=== PATIENT | female | born 1945 | race Two or more races ===

== ENCOUNTER 2019-01-09 06:58 | Inpatient (IN) ==
[~2019-01-09 06:58] MED LIST: ceFAZolin SODIUM/DEXTROSE,ISO 2 GM/50 ML BAG IV PRN
--- NOTE | 2019-01-09 07:44 | ANES ---
Anesthesia Pre Procedure Eval Vitals/Labs: Last Vital Signs Temp 36.4 C 01/09/19 07:17 Pulse 86 01/09/19 07:17 Resp 16 01/09/19 07:17 BP 137/79 01/09/19 07:17 Pulse Ox 99 01/09/19 07:17 HOME MEDICATIONS oxybutynin chloride 5 mg tablet 5 mg PO BID #180 tab 07/28/18 [Last Taken Unknown] levothyroxine 150 mcg tablet 150 mcg PO DAILY #90 tab 10/31/18 [Last Taken Unknown] omeprazole 40 mg capsule,delayed release 40 mg PO DAILY PRN #30 cap 11/13/18 [Last Taken Unknown] pantoprazole 20 mg tablet,delayed release 20 mg PO DAILY PRN #90 tab 11/18/18 [Last Taken Unknown] hydrocodone 5 mg-acetaminophen 325 mg tablet 1 tab PO Q6H #14 tab 12/24/18 [Last Taken Unknown] Allergies/Adverse Reactions: Allergies Allergy/AdvReac Type Severity Reaction Status Date / Time No Known Allergies Allergy Verified 01/09/19 07:23 - Planned Procedure Planned Procedure: TLH, doug salpingo-oophorectomy, cystoscopy Medication List Reviewed:: Yes Allergies Verified: Yes Medical History (Last Reviewed 01/09/19 @ 07:43 by Alex Jose CRNA) Acute lateral meniscus tear of right knee Onset Date: ~2009 Colonoscopy refused Onset Date: Unknown GERD (gastroesophageal reflux disease) Onset Date: ~1997 Hyperlipidemia Onset Date: ~2007 Hypothyroidism Onset Date: ~2000 Osteoarthritis Onset Date: Unknown Varicose veins of both lower extremities Onset Date: Unknown Surgical History (Last Reviewed 01/09/19 @ 07:43 by Alex Jose CRNA) H/O vein stripping Onset Date: Unknown bilateral lower extremity, great saphernous veing stripping with stab phlebotomies, based on the incisions she has on her legs--[facility] vascular surgery History of appendectomy Onset Date: ~1960 History of total knee arthroplasty Onset Date: ~11/22/16 left knee at [facility] S/P arthroscopic surgery of right knee Onset Date: ~2009 Family History (Last Reviewed 01/09/19 @ 07:43 by Alex Jose CRNA) Father Myocardial infarction Parkinsons disease Mother , age 93 hip fracture with complications - Family Anesthesia History Family History:: no untoward family reactions to anesthesia - Airway/Neck/Teeth Teeth Condition: missing Neck Exam: full range of motion Mallampatti Score: 2 Thyromental (T-M) distance: > 6 cm Mandibulo Hyoid distance: > 3 cm - Respiratory Respiratory Physical: lungs clear Smoking Status: Never smoker Sleep Apnea currently treated: No Sleep Apnea by current assessment: No - Cardiovascular Tolerate Activity: Fair Heart Sounds: S1 & S2, Regular - Anesthesia Assessment and Plan Anesthesia Type Plan: General ET
[2019-01-09] MEDS: RINGER'S SOLUTION,LACTATED 1,000 ML IV PRN ×5 (07:50→20:09)
[2019-01-09] MEDS ORDERED: oxyCODONE HCL/ACETAMINOPHEN 1 TAB TABLET PO PRN (08:36)
[2019-01-09] MEDS ORDERED: RINGER'S SOLUTION,LACTATED 1,000 ML IV PRN (08:36)
[2019-01-09] MEDS ORDERED: MORPHINE SULFATE 2 MG/ML DISP.SYRIN IV PRN (08:36)
[2019-01-09] MEDS ORDERED: IBUPROFEN 800 MG TABLET PO PRN (08:36)
[2019-01-09] MEDS ORDERED: ONDANSETRON HCL/PF 2 MG/ML VIAL IV PRN (10:42)
[2019-01-09] MEDS ORDERED: METOCLOPRAMIDE HCL 5 MG/ML VIAL IV PRN (10:42)
--- NOTE | 2019-01-09 10:45 | POSTOP NO ---
Date of Surgery: 01/09/19 Stop Time: 10:44 Anesthesia: General Patient Tolerated the Procedure: Well Post Operative Diagnosis/Procedures: Pre Operative Diagnosis: PMB, leiomyomas Post Operative Diagnosis: same Procedure Performed: laparoscopy converted to JERMAINE Estimated Blood Loss: 200 mL Specimens: cervix, uterus, left tube and ovary Surgical Complications: none Condition: stable Disposition: to recovery room
[2019-01-09] MEDS ORDERED: MORPHINE SULFATE 50 MG CARTRIDGE IV PRN (11:57)
[2019-01-09] MEDS ORDERED: NALOXONE HCL 1 MG/1 ML SYRG IV PRN (11:57)
[2019-01-09] MEDS ORDERED: diphenhydrAMINE HCL 50 MG/ML VIAL IV PRN (11:57)
--- NOTE | 2019-01-09 11:57 | OR ---
Operative Report - Dictated Report Narrative: Preoperative diagnosis: PMB, cervical and uterine leiomyomas Postoperative diagnosis: as above plus severe intra-abdominal adhesions Procedure: Attempted laparoscopy converted to total abdominal hysterectomy, lysis of adhesions Surgeon: Dr. Altamirano Anesthesia: general Anesthesiologist: Dimas Jose CRNA Description of the procedure: The patient was taken to the operating room where general endotracheal anesthesia was induced without difficulty. She was then prepped and draped in the lithotomy position in the standard surgical fashion. Attention was then turned to the vagina. A sterile speculum was placed in the patient's vagina. The anterior lip of the cervix was grasped with a single toothed tenaculum. A cervical fibroid was again noted. A DEBORAH manipulator was placed using a blue tip and a large cup. Attention was then turned to the abdomen. A 5mm skin incision was made at the punctum of the umbilicus. Attempts at entry into the abdomen took 3 times secondary to adhesions. The third entry was away from the adhesions but adhesions were noted of the omentum as well as the bowel to the right side of the abdominal wall all the way to the left pelvic side wall. I attempted to take down the adhesions after placing a 5mm LLQ port. However, the uterus could not visualized at all and thus it was not safe to complete the case laparoscopically. At this point I made the decision to proceed with an open case. The port sites were closed with 3-0 monocryl. A Pfannestiel skin incision was made. The incision was carried through the subcutaneous tissue. The fascia was incised in the midline. The fascial incision was extended laterally using sharp dissection. The fascia was grasped with Aaron clamps and dissected from the underlying rectus muscles. The same procedure was repeated inferiorly. Hemostasis was obtained as there were several bleedings both superiorly and inferiorly. The rectus muscles were in the midline. The peritoneum was entered very carefully due to the known adhesions. The omentum was densely adherent. The omentum was from the incision. The peritoneum was entered sharply taking great care not to injury the bowel. The bowel was packed away with laps. A medium Lorenzo retractor was placed. The uterus was identified and grasped with a tenaculum. The sigmoid colon was noted to be adhere to the left tube and ovary and this was dissected carefully and looking at the bowel wall the entire time. The right round ligament was identified and transected. The incision was carried through the anterior and posterior leaves of the broad ligament. A bladder flap was created anteriorly. The bladder was found to be adherent to the lower uterine segment and thus the bladder was flap was created and the bladder was taken down very carefully. Next, the uterine arteries were skeletonized and progressively clamped. There was significant bleeding from the right side and several sutures had to be placed for hemostatis. Attention was then turned to the left side. The IP ligament was identified and doubly clamped. Then the pedicle was sutured ensuring hemostatis. The left tube appeared normal. The left ovary appeared atrophic. Then the uterine arteries were skeletonized and suture ligated on the left. The bladder flap was further expanded. A colpotomy was started following the cup of the DEBORAH manipulator, initially anteriorly and then posteriorly. Additional bleeding was controlled on the right side. The vaginal cuff was closed with 0-vicryl sutures and interrupted figure of eight sutures. Bleeding was noted from the bilateral peritoneal surfaces posteriorly using irrigation to identify the bleeding areas. Several sutures were placed for hemostasis. Surgicel was placed and pressure was held for two minutes. After removing the surgicel bleeding again ensued. The raw peritoneal surfaces were approximated to the vaginal cuff to enclose the entire posterior area. Surgicel was placed again and pressure was held for 5 minutes. Hemostasis was adequate. All laps were removed from the abdomen as well as the Lorenzo retractor. The rectus muscles were inspected and made hemostatic. The fascia was also inspected and made hemostatic. The fascia was closed with a continuous suture of 1-0 vicryl. The subcutaneous tissue was irrigated and hemostasis was obtained. The subcutaneous tissue was closed with 2-0 vicryl. The skin was closed with 3-0 monocryl on a Jovan needle. Dermabond was placed over the incisions. All sponge, lap, and needle counts were correct. The patient tolerated the procedure well. She was transferred to the recovery room in stable condition. EBL: 200 mL Complications: none Specimens: cervix, uterus, left fallopian tube and ovary
--- NOTE | 2019-01-09 12:11 | ANES ---
Post Anesthesia Discharge - Transfer of Care Transfer of Care handoff given to nurse: Yes - Discharge from PACU Discharge from PACU when meets criteria: Yes
--- NOTE | 2019-01-09 12:11 | ANES ---
Post Anesthesia Assessment - Vital Signs Vitals: Last Vital Signs Temp 36.5 C 01/09/19 11:30 Pulse 87 01/09/19 12:05 Resp 17 01/09/19 12:05 BP 132/68 01/09/19 12:05 Pulse Ox 95 01/09/19 12:05 Airway Patency: Normal - Mental Status Level Of Consciousness: Awake - Pain Level Pain Score: 6 - N/V Assessment Nausea/Vomiting Presence: None Dehydration:: No
[2019-01-09] MEDS: oxyCODONE HCL/ACETAMINOPHEN 1 TAB TABLET PO PRN ×2 (16:48→22:39)
[2019-01-09] MEDS: IBUPROFEN 800 MG TABLET PO PRN (22:39)
[2019-01-10] MEDS: RINGER'S SOLUTION,LACTATED 1,000 ML IV PRN ×2 (04:14→07:19)
[2019-01-10] MEDS: oxyCODONE HCL/ACETAMINOPHEN 1 TAB TABLET PO PRN (04:53)
[2019-01-10] MEDS: IBUPROFEN 800 MG TABLET PO PRN (04:53)
[2019-01-10] MEDS ORDERED: RINGER'S SOLUTION,LACTATED 1,000 ML IV ONE ×2 (06:00→09:36)
[2019-01-10 06:05] LABS: Hematocrit 35.3 % (37.0-47.0); Hemoglobin 11.1 gm/dL (12.5-16.0); Mean Cell Volume 94.4 fl (78-100); Mean Corpuscular Hemoglobin 29.7 pg (27-31); Mean Corpuscular Hgb Conc 31.4 g/dl (32-36); Mean Platelet Volume 10.3 fl (8-12.5); Neutrophil # 4.5 K/mm3 (1.3-6.0); Neutrophil % 63.7 % (42-75.0); Platelet Count 143 K/mm3 (150-450); Red Blood Count 3.74 M/mm3 (4.2-5.4); Red Cell Distribution Width 13.4 % (11.5-14.0); White Blood Count 7.1 K/mm3 (4.0-10.5)
[2019-01-10 06:13] LABS: Anion Gap 7.9 mmol/L (6.8-13.8); BUN/Creatinine Ratio 22.9 (9.0-21.6); Blood Urea Nitrogen 24 mg/dL (3-23); Calcium * 7.8 mg/dL (7.9-10.9); Carbon Dioxide 31.3 mmol/L (24-32.6); Chloride 106 mmol/L (97-106); Glucose * 121 mg/dL (70-110); Potassium 4.2 mmol/L (3.4-4.6); Sodium 141 mmol/L (132-142)
--- NOTE | 2019-01-10 09:27 | PN ---
Subjective - Date and Time Seen Date: 01/10/19 Time: 09:17 Subjective Narrative: Patient without complaints Objective Objective Narrative: See vital signs - Review of Systems Generalized/Overall Review: Reports: No Symptoms Reported Misc: All systems neg except as marked - Vitals Vitals: Last Vital Signs Temp 36.5 C 01/10/19 07:28 Pulse 70 01/10/19 07:28 Resp 20 01/10/19 07:28 BP 118/62 01/10/19 07:28 Pulse Ox 92 L 01/10/19 07:28 - Abnormal Lab Findings Abnormal Lab Findings: Abnormal Lab Results 01/10/19 01/10/19 Range/Units 06:01 06:01 RBC 3.74 L (4.2-5.4) M/mm3 Hgb 11.1 L (12.5-16.0) gm/dL Hct 35.3 L (37.0-47.0) % MCHC 31.4 L (32-36) g/dl Plt Count 143 L (150-450) K/mm3 BUN 24 H (3-23) mg/dL Est GFR (Non-Af Amer) 54 L (60-130) mL/min BUN/Creatinine Ratio 22.9 H (9.0-21.6) Random Glucose 121 H (70-110) mg/dL Calcium 7.8 L (7.9-10.9) mg/dL - Exam Constitutional: Present: Alert, Oriented x3, Cooperative, No distress Abdomen: Present: soft, nontender, nondistended Extremity: Present: non-tender, no calf tenderness Skin Exam: Present: normal color, warm/dry, no cyanosis Appearance: Present: appropriate appearance Eye contact: Present: cooperative Thoughts: Present: normal thought pattern Assessment/Plan Plan Narrative: POD 1 s/p attempted laparoscopy, JERMAINE Doing well Pt had decreased urine output. The patient received a bolus of LR. The BUN is high and the patient's urine is concentrated consistent with a pre-renal cause for the decreased urine output. Give an additional bolus and encourage PO hydration as well. Discontinue Gaines. Discharge home after patient voids Pt and son counseled on pain management with vicodin Rx at home and ibuprofen I explained to the patient in detail why I had to convert to an open procedure. The patient had prior history of deliveries and an RSO which the patient did not tell me about as far as her surgical history was concerned. Therefore, I did not anticipate the possibility of an open procedure but decided this intraoperatively as the best course of action to avoid a bowel injury given the significant bowel adhesions noted on laparoscopy. She and her son verbalized understanding of all of this. - Problems/Diagnosis (1) Status post total abdominal hysterectomy Problem: Acute
[2019-01-10 12:55] VITALS: BP 112/58
--- NOTE | 2019-01-15 13:03 | DS ---
(1) Status post total abdominal hysterectomy Problem: Acute Description of Stay: The patient stayed overnight for pain control due to open procedure. Procedures Performed: see notes below List Procedures: JERMAINE, LSO Results and Findings: Lab Pending Results 01/09/19 07:37: Blood Type A Positive, Antibody Screen Negative 01/09/19 11:20: Pathology Specimen Spec to path 01/10/19 06:01: WBC 7.1, RBC 3.74 L, Hgb 11.1 L, Hct 35.3 L, MCV 94.4, MCH 29.7, MCHC 31.4 L, RDW 13.4, Plt Count 143 L, MPV 10.3, Immature Gran % (Auto) 0.10, Immature Gran # (Auto) 0.01, Neutrophils % 63.7, Lymphocytes % 25.2, Monocytes % 9.0, Eosinophils % 1.7, Basophils % 0.3, Nucleated RBC % 0.0, Neutrophils # 4.5, Lymphocytes # 1.79, Monocytes # 0.6, Eosinophils # 0.1, Absolute Basophils 0.0 01/10/19 06:01: Sodium 141, Plasma Sodium 141, Potassium 4.2, Chloride 106, Carbon Dioxide 31.3, Anion Gap 7.9, BUN 24 H, Creatinine 1.05, Est GFR (Non-Af Amer) 54 L, BUN/Creatinine Ratio 22.9 H, Random Glucose 121 H, Calcium 7.8 L Discharge Location: Home Disposition: Home self-care Condition: Good Discharge Activity: Activity as tolerated Discharge Diet: General/regular food Referrals: Victoria Cook MD [Primary Care Provider] - Problem Oriented Discharge Instructions to Patient/Family: Abdominal Hysterectomy, Care After, [id number], Abdominal Hysterectomy Print Language (Armenian or Romansh Available): Armenian Additional Patient Instructions (free text): - Follow up with Dr. Altamirano in 2 weeks for incision check and post op follow up in 4 weeks. - [facility] will call you on Saturday with appointments. Complete Home Medications List: Complete Home Medication List: oxybutynin chloride 5 mg tablet 5 mg PO BID #180 tab 07/28/18 levothyroxine 150 mcg tablet 150 mcg PO DAILY #90 tab 10/31/18 omeprazole 40 mg capsule,delayed release 40 mg PO DAILY PRN #30 cap 11/13/18 pantoprazole 20 mg tablet,delayed release 20 mg PO DAILY PRN #90 tab 11/18/18 hydrocodone 5 mg-acetaminophen 325 mg tablet 1 tab PO Q6H #14 tab 12/24/18 Ibuprofen [Motrin] 800 mg PO Q6H PRN tab 01/10/19
== END 2019-01-10 13:00 | disposition home or self-care (01) | DRG 743 ==
LOC: SUR 06:58 → MS 06:58
PROVIDERS: ADMIT Obstetrics & Gynecology; ATTEND Obstetrics & Gynecology
CPT/HCPCS: 36415; 78452; 80048; 85025; 86850; 86900; 88309; 93017; A9502; J2405; J2785